=== PATIENT | male | born 1970 | race Caucasian/White ===

== ENCOUNTER 2019-12-02 08:08 | Emergency (ER) | payer MEDICAID ==
[~2019-12-02] VITALS: Ht 142.2 cm; Wt 54.5 kg
[~2019-12-02 08:08] MED LIST: ACET-1015 PO; ARIP5TAB14 PO; CHLO TP; ESCI5TAB12 PO; LEVO75TA7 PO; LISI-604 PO; LORA10TA7 PO; MAGN296S70 PO; MAGN400O6 PO; MULT-1179 PO; MYCOL30CR TP; OMEP20TA5 PO; ONDA4TAB12 PO; POLY17PO10 PO
[2019-12-02] MEDS ORDERED: normal saline 1000ML IV soln IV ONE (08:55)
[2019-12-02 09:40] LABS: BASOPHILS # (AUTO) 0.1 X10'3 (0-0.2); BASOPHILS % (AUTO) 1.3 % (0-1); EOSINOPHILS # (AUTO) 0.1 X10'3 (0-0.9); EOSINOPHILS % (AUTO) 0.7 % (0-6); HEMATOCRIT 29.1 % (42.0-52.0); HEMOGLOBIN 9.7 g/dl (14.0-17.9); LYMPHOCYTES # (AUTO) 2.2 X10'3 (1.1-4.8); LYMPHOCYTES % (AUTO) 20.8 % (21-51); MEAN CORPUSCULAR HEMOGLOBIN 34.9 PG (27.0-31.0); MEAN CORPUSCULAR HGB CONC 33.4 g/dL (33.0-36.5); MEAN CORPUSCULAR VOLUME 104.5 FL (78-98); MEAN PLATELET VOLUME 8.1 FL (7.4-10.4); MONOCYTES # (AUTO) 1.4 X10'3 (0-0.9); MONOCYTES % (AUTO) 12.7 % (2-12); NEUTROPHILS % (AUTO) 64.5 % (42-75); PLATELET COUNT 443 X10'3 (140-440); RED BLOOD COUNT 2.79 X10'6 (4.70-6.10); RED CELL DISTRIBUTION WIDTH 14.1 % (11.5-14.5); WHITE BLOOD COUNT 10.8 X10'3 (4.5-11.0)
[2019-12-02 10:01] LABS: ALANINE AMINOTRANSFERASE 11 U/L (12-78); ALBUMIN/GLOBULIN RATIO 0.4 (1.1-1.5); ALKALINE PHOSPHATASE 60 IU/L (46-116); ANION GAP 4 (8-16); ASPARTATE AMINO TRANSFERASE 13 U/L (10-37); BILIRUBIN,TOTAL 0.3 MG/DL (0.1-1.0); BLOOD UREA NITROGEN 19 MG/DL (7-18); CALCIUM 8.1 MG/DL (8.5-10.1); CHLORIDE 105 MMOL/L (99-107); GLUCOSE 89 MG/DL (70-104); POTASSIUM 4.4 MMOL/L (3.5-5.1); SODIUM 139 MMOL/L (135-145); TOTAL CARBON DIOXIDE 30.1 MMOL/L (24-32); TOTAL PROTEIN 6.5 G/DL (6.4-8.2); eGFR 79 ML/MIN
[2019-12-02 10:10] LABS: CLARITY,URINE CLOUDY (Clear); COLOR,URINE YELLOW (Yellow); GLUCOSE, URINE NEGATIVE (Neg); KETONES,URINE TRACE mg/dl (Neg); LEUKOCYTE ESTERASE ,URINE SMALL (Neg); NITRITES, URINE NEGATIVE (Neg); OCCULT BLOOD,URINE NEGATIVE (Neg); PROTEIN,URINE NEGATIVE (Neg); UROBILINOGEN,URINE 0.2 E.U/dL (0.2-1.0)
[2019-12-02 10:12] LABS: UA COLLECTION TYPE FOLEY CATH
--- NOTE | 2019-12-02 10:15 | NUR ---
TO CT VIA [facility]
[2019-12-02 10:35] LABS: MUCUS STRANDS MODERATE /LPF (Neg)
[2019-12-02 10:36] LABS: SQUAMOUS EPITHELIAL CELL,UR FEW /LPF (FEW)
[2019-12-02 10:37] LABS: BACTERIA,URINE 1+ /HPF (Neg)
[2019-12-02 10:39] LABS: TRANSITIONAL EPI CELLS,URINE FEW /HPF
[2019-12-02 10:40] LABS: WBC,URINE 30-50 /HPF (0-4)
[2019-12-02] MEDS ORDERED: CefTRIAXone inj 1,000 MG in normal saline 50ml IV soln 50 ML IV ONE (11:05)
[2019-12-02] MEDS ORDERED: bisacodyl 10mg suppository rectal RC STA (11:05)
[2019-12-02] MEDS ORDERED: bisacodyl 5mg tablet.DR PO ONE (11:05)
[2019-12-02] MEDS ORDERED: CIPR-230 PO ×2 (12:45→13:02)
[2019-12-02] MEDS ORDERED: DOCU-171 PO ×2 (12:48→13:02)
[2019-12-02 13:00] VITALS: BP 103/42
== END 2019-12-02 13:26 | disposition home or self-care (01) ==
LOC: ER 08:08
DX: N39.0 Urinary tract infection, site not specified (principal); K59.00 Constipation, unspecified; R91.8 Other nonspecific abnormal finding of lung field; R53.83 Other fatigue; I95.9 Hypotension, unspecified; K21.9 Gastro-esophageal reflux disease without esophagitis; F03.90 Unspecified dementia, unspecified severity, without behavioral disturbance, psychotic disturbance, mood disturbance, and anxiety; Z79.899 Other long term (current) drug therapy
CPT/HCPCS: 36415; 71045; 71250; 74176; 80053; 81001; 83605; 83735; 84145; 85025; 87040; 87088; 93005; 96361; 96365; 99285; J0696; J7030; 87077

== ENCOUNTER 2020-05-08 08:25 | Emergency (ER) | payer MEDICAID ==
[~2020-05-08] VITALS: Ht 152.4 cm; Wt 54.5 kg
[~2020-05-08 08:25] MED LIST changes: +DOCU-171 PO; -ESCI5TAB12 PO; +ESCI5TAB25 PO
--- NOTE | 2020-05-08 09:15 | NUR ---
PIN SORTER AND BAGGER AT BEDSIDE.
--- NOTE | 2020-05-08 09:24 | NUR ---
PT IS MENTAL DELAYED ,BELT CUTTER AT BEDSIDE LIGHT SWITCHED OFF,DOOR CLOSED TO KEEP PT CALM,BELT CUTTER REQUESTED FOR WATER FOR PT ,PT HAS TAKEN PO WATER WITH OUT ANY NAUSEA.
--- NOTE | 2020-05-08 09:48 | NUR ---
TRIED TO REPEAT BP ON PTBUT PT NONCOMPLAINT ,STARTED SCREAMING SHOULDER PUNCHER AT BEDSIDE HELPING TO KEEP THE PT CALM.
[2020-05-08] MEDS ORDERED: ondansetron/PF 4mg/2ml inj IV ONE (09:50)
[2020-05-08] MEDS ORDERED: pantoprazole 40 MG vial IV ONE (09:50)
[2020-05-08] MEDS ORDERED: normal saline 1000ML IV soln IVB ONE (09:50)
[2020-05-08 10:38] VITALS: BP 130/72
[2020-05-08 10:38] LABS: BASOPHILS # (AUTO) 0.1 X10'3 (0-0.2); BASOPHILS % (AUTO) 0.5 % (0-1); EOSINOPHILS % (AUTO) 0.1 % (0-6); LYMPHOCYTES # (AUTO) 2.3 X10'3 (1.1-4.8); MONOCYTES # (AUTO) 1.7 X10'3 (0-0.9); MONOCYTES % (AUTO) 12.3 % (2-12)
[2020-05-08 10:40] LABS: HEMATOCRIT 28.5 % (42.0-52.0); HEMOGLOBIN 9.6 g/dl (14.0-17.9); LYMPHOCYTES % (AUTO) 16.8 % (21-51); MEAN CORPUSCULAR HEMOGLOBIN 35.8 PG (27.0-31.0); MEAN CORPUSCULAR HGB CONC 33.8 g/dL (33.0-36.5); MEAN CORPUSCULAR VOLUME 105.7 FL (78-98); MEAN PLATELET VOLUME 7.9 FL (7.4-10.4); NEUTROPHILS # (AUTO) 9.7 X10'3 (1.8-7.7); NEUTROPHILS % (AUTO) 70.3 % (42-75); PLATELET COUNT 399 X10'3 (140-440); RED BLOOD COUNT 2.69 X10'6 (4.70-6.10); RED CELL DISTRIBUTION WIDTH 14.3 % (11.5-14.5); WHITE BLOOD COUNT 13.8 X10'3 (4.5-11.0)
[2020-05-08 10:44] LABS: CLARITY,URINE SLIGHTLY CLOUDY (Clear); COLOR,URINE YELLOW (Yellow); GLUCOSE, URINE NEGATIVE (Neg); KETONES,URINE TRACE mg/dl (Neg); LEUKOCYTE ESTERASE ,URINE NEGATIVE (Neg); NITRITES, URINE NEGATIVE (Neg); OCCULT BLOOD,URINE NEGATIVE (Neg); PROTEIN,URINE NEGATIVE (Neg); UROBILINOGEN,URINE 0.2 E.U/dL (0.2-1.0)
[2020-05-08 10:49] LABS: UA COLLECTION TYPE STRAIGHT CATH
[2020-05-08 10:51] LABS: MUCUS STRANDS NONE SEEN /LPF (Neg); SQUAMOUS EPITHELIAL CELL,UR FEW /LPF (FEW); TRANSITIONAL EPI CELLS,URINE FEW /HPF
[2020-05-08 10:53] LABS: ALANINE AMINOTRANSFERASE 14 U/L (12-78); ALBUMIN 2.2 G/DL (3.4-5.0); ALBUMIN/GLOBULIN RATIO 0.5 (1.1-1.5); ALKALINE PHOSPHATASE 70 IU/L (46-116); ANION GAP 7 (8-16); ASPARTATE AMINO TRANSFERASE 17 U/L (10-37); BILIRUBIN,TOTAL 0.4 MG/DL (0.1-1.0); BLOOD UREA NITROGEN 17 MG/DL (7-18); BUN/CREATININE RATIO 19.1 (5.4-32.0); CALCIUM 7.9 MG/DL (8.5-10.1); CHLORIDE 96 MMOL/L (99-107); CREATININE 0.89 MG/DL (0.60-1.10); GLUCOSE 86 MG/DL (70-104); LIPASE < 50 U/L (73-393); SODIUM 133 MMOL/L (135-145); TOTAL CARBON DIOXIDE 29.6 MMOL/L (24-32); eGFR 90 ML/MIN
[2020-05-08 10:53] LABS: BACTERIA,URINE NONE SEEN /HPF (Neg); RBC,URINE 0-2 /HPF (0-2); WBC,URINE 0-4 /HPF (0-4)
[2020-05-08] MEDS ORDERED: levoFLOXACIN-Levaquin 750MG/D5 150 ML IV ONE (11:55)
--- NOTE | 2020-05-08 12:49 | NUR ---
PT IS NON CPMPLAINT WITH VITALS DR HERRERA AWARE PER MD SHE WANT TO SEE THE ABG ANALYSIS AND D/C PT AFTER THE RESULT ASPT CAN'T HOLD HIS ARM TO GET ACCURATE READING.
[2020-05-08] MEDS ORDERED: LEVO500T89 PO ×2 (13:09→13:27)
[2020-05-08] MEDS ORDERED: PROM12.512 PO ×2 (13:09→13:27)
== END 2020-05-08 14:10 | disposition home or self-care (01) ==
LOC: ER 08:26
DX: J18.9 Pneumonia, unspecified organism (principal); Z20.828 Contact with and (suspected) exposure to other viral communicable diseases; R11.0 Nausea; Q90.9 Down syndrome, unspecified; R62.50 Unspecified lack of expected normal physiological development in childhood; F03.90 Unspecified dementia, unspecified severity, without behavioral disturbance, psychotic disturbance, mood disturbance, and anxiety; K21.9 Gastro-esophageal reflux disease without esophagitis; Z79.2 Long term (current) use of antibiotics; Z79.899 Other long term (current) drug therapy
CPT/HCPCS: 36415; 71045; 80053; 81001; 83605; 83690; 85025; 87040; 87635; 96361; 96365; 96375; 99284; C9113; C9803; J1956; J2405; J7030; 94760

== ENCOUNTER 2020-05-29 11:37 | Emergency (ER) | payer MEDICAID ==
[~2020-05-29] VITALS: Ht 157.5 cm; Wt 44.0 kg
[~2020-05-29 11:37] MED LIST changes: +ESCI5TAB17 PO; -ESCI5TAB25 PO; -LISI-604 PO; +LISI-790 PO; +PROM12.512 PO
[2020-05-29 11:44] VITALS: BP 85/50
== END 2020-05-29 14:50 | disposition home or self-care (01) ==
LOC: ER 11:39
DX: R11.10 Vomiting, unspecified (principal); Q90.9 Down syndrome, unspecified; Z00.00 Encounter for general adult medical examination without abnormal findings; F79 Unspecified intellectual disabilities; F03.90 Unspecified dementia, unspecified severity, without behavioral disturbance, psychotic disturbance, mood disturbance, and anxiety; K21.9 Gastro-esophageal reflux disease without esophagitis; E03.9 Hypothyroidism, unspecified; Z87.01 Personal history of pneumonia (recurrent); Z86.2 Personal history of diseases of the blood and blood-forming organs and certain disorders involving the immune mechanism; Z79.899 Other long term (current) drug therapy; Z76.89 Persons encountering health services in other specified circumstances
CPT/HCPCS: 99281